=== PATIENT | male | born 1960 | race African-American/Black ===

== ENCOUNTER → 2017-07-27 | Emergency (ER) | payer OTHER ==
[~2017-07-27] VITALS: Ht 162.6 cm; Wt 52.2 kg
[~2017-07-27] MED LIST: ACET-1156 PO; FOLI1TAB6 OR; NAPR220C PO; OMEP20TA34 OR; PROMETHAZINE OR
[2017-07-27 04:32] VITALS: BP 0/0
== END | disposition expired ==
LOC: ER 04:32
DX: I46.9 Cardiac arrest, cause unspecified (principal); I10 Essential (primary) hypertension; K21.9 Gastro-esophageal reflux disease without esophagitis; M10.9 Gout, unspecified; F17.210 Nicotine dependence, cigarettes, uncomplicated
CPT/HCPCS: 31500; 92950